=== PATIENT | female | born 1995 | race Caucasian/White ===

== ENCOUNTER 2023-12-04 13:31 | Emergency (ER) | payer MEDICAID ==
[2023-12-04] MEDS: Bacitracin Oint 1 GM U/D Packet TOP ONE (16:56)
== END 2023-12-04 17:09 | disposition home or self-care (01) ==
LOC: JP.ED 13:31
DX: S61.211A Laceration without foreign body of left index finger without damage to nail, initial encounter (principal); Z88.0 Allergy status to penicillin; F17.210 Nicotine dependence, cigarettes, uncomplicated; W26.8XXA Contact with other sharp object(s), not elsewhere classified, initial encounter; Y93.89 Activity, other specified; Y99.0 Civilian activity done for income or pay
CPT/HCPCS: 99282